=== PATIENT | male | born 1985 | race Caucasian/White ===

== ENCOUNTER 2017-11-21 06:27 | Emergency (ER) | payer OTHER ==
[2017-11-21 06:34] VITALS: BP 130/82; PULSE 61; TEMP 98.2; BMI 25.7
--- NOTE | 2017-11-21 07:14 | PDOC ---
History of Present Illness - General Chief Complaint: Pain, Acute Stated Complaint: BACK PAIN Time Seen by Provider: 11/21/17 07:13 - History of Present Illness Initial Comments: 11/21/17 07:13 Mr. Rice is a 32 yo male w/ pmh of IBS who presents c/o a 1 day history of right sided back pain that radiates to his abdomen. He reports the pain was mild last night and he believed that he was constipated but decided to call the ambulance this morning when he experienced 8-9/10 pain after urinating. He has never had pain like this before and describes it as sharp and coming and going. He has difficulty getting comfortable. The patient denies chest pain, shortness of breath, headache and dizziness. Denies fever, chills, nausea, vomit, diarrhea and constipation. Denies dysuria, frequency, urgency and hematuria. Allergies: NKDA Past History - Past Medical History Allergies/Adverse Reactions: Allergies Allergy/AdvReac Type Severity Reaction Status Date / Time No Known Drug Allergies Allergy Verified 11/21/17 06:34 Home Medications: Ambulatory Orders Omeprazole 20 mg PO DAILY 11/21/17 Oxycodone HCl/Acetaminophen [Percocet 5-325 mg Tablet] 1 tab PO TID PRN #7 tab MDD 3 tabs 11/21/17 Anemia: No Asthma: No Cancer: No Cardiac Disorders: No CVA: No COPD: No CHF: No Dementia: No Diabetes: No GI Disorders: Yes (IRRITABLE BOWEL SYNDROME;CONSTIPATION,ABDOMINAL BLOATING) Disorders: No HTN: No Hypercholesterolemia: No Liver Disease: No Seizures: No Thyroid Disease: No - Surgical History Abdominal Surgery: No Appendectomy: No Cardiac Surgery: No Cholecystectomy: No Lung Surgery: No Neurologic Surgery: No Orthopedic Surgery: No - Suicide/Smoking/Psychosocial Hx Smoking History: Never smoked Have you smoked in the past 12 months: No Information on smoking cessation initiated: No Hx Alcohol Use: No Drug/Substance Use Hx: No Substance Use Type: None Hx Substance Use Treatment: No Review of Systems - Review of Systems Comments:: 11/21/17 07:14 GENERAL/CONSTITUTIONAL: No fever or chills. No weakness. HEAD, EYES, EARS, NOSE AND THROAT: No change in vision. No ear pain or discharge. No sore throat. CARDIOVASCULAR: No chest pain or shortness of breath RESPIRATORY: No cough, wheezing, or hemoptysis. GASTROINTESTINAL: No nausea, vomiting, diarrhea or constipation. GENITOURINARY: No dysuria, frequency, or change in urination. MUSCULOSKELETAL: +Radiating back pain as described. SKIN: No rash NEUROLOGIC: No headache, vertigo, loss of consciousness, or change in strength/ sensation. ENDOCRINE: No increased thirst. No abnormal weight change HEMATOLOGIC/LYMPHATIC: No anemia, easy bleeding, or history of blood clots. ALLERGIC/IMMUNOLOGIC: No hives or skin allergy. *Physical Exam - Vital Signs Last Vital Signs Temp Pulse Resp BP Pulse Ox 98.2 F 61 20 130/82 100 11/21/17 06:30 11/21/17 06:30 11/21/17 06:30 11/21/17 06:30 11/21/17 06:30 - Physical Exam Comments: 11/21/17 07:14 GENERAL: Awake, alert, and fully oriented, in no acute distress HEAD: No signs of trauma, normocephalic, atraumatic EYES: PERRLA, EOMI, sclera anicteric, conjunctiva clear ENT: Auricles normal inspection, hearing grossly normal, nares patent, oropharynx clear without exudates. Moist mucosa NECK: Normal ROM, supple, no lymphadenopathy, JVD, or masses LUNGS: No distress, speaks full sentences, clear to auscultation bilaterally HEART: Regular rate and rhythm, normal S1 and S2, no murmurs, rubs or gallops, peripheral pulses normal and equal bilaterally. ABDOMEN: +Patient reports pressure but no pain to palpation throughout. Soft, nontender, normoactive bowel sounds. No guarding, no rebound. No masses EXTREMITIES: Normal inspection, Normal range of motion, no edema. No clubbing or cyanosis. NEUROLOGICAL: Cranial nerves II through XII grossly intact. Normal speech, normal gait, no focal sensorimotor deficits SKIN: Warm, Dry, normal turgor, no rashes or lesions noted. ED Treatment Course - LABORATORY CBC & Chemistry Diagram: 11/21/17 07:53 11/21/17 07:53 Medical Decision Making - Medical Decision Making 11/21/17 09:49 Mr. Rice is a 32 yo male w/ pmh as described who presents w/ symptoms concerning for kidney stone. Corresponding labs/CT ordered for evaluation with toradol given for pain control. Patient reported relief of pain with this treatment. CT revealed 5mm right UVJ calculus with mild hydronephrosis. Stone has been moving well within 4 hours of ER visit, concern for obstruction low at this time. Discharging w/ pain control and instructions to f/u as needed for further evaluation or uncontrolled pain. Patient verbalized understanding and agreement and will comply. *DC/Admit/Observation/Transfer Diagnosis at time of Disposition: Kidney stone - Discharge Dispostion Disposition: HOME Condition at time of disposition: Fair - Prescriptions Prescriptions: Oxycodone HCl/Acetaminophen [Percocet 5-325 mg Tablet] 1 tab PO TID PRN #7 tab MDD 3 tabs PRN Reason: Severe Pain - Referrals Referrals: Vidya Estrella MD [Primary Care Provider] - Blayne Ordaz MD [Staff Physician] - - Patient Instructions Printed Discharge Instructions: DI for Kidney Stones Additional Instructions: Take over the counter medications as needed for pain control. A prescription has been called to your pharmacy for breakthrough pain. Take as proscribed. Return to ER if any difficulty urinating, pain uncontrollable with proscribed medications, or other concerning symptoms. Urology information has been provided as well for further evaluation as needed. - Post Discharge Activity Forms/Work/School Notes: Back to School
[2017-11-21] MEDS ORDERED: KETOROLAC TROMETHAMINE 30 MG/1 ML VIAL IVPUSH ONE (07:21)
[2017-11-21] MEDS ORDERED: SODIUM CHLORIDE 1,000 ML IV STA (07:21)
[2017-11-21] MEDS ORDERED: KETOROLAC TROMETHAMINE 30 MG/1 ML VIAL ONE (07:43)
[2017-11-21 08:03] LABS: BASO % 0.3 % (0-2.0); EOS % 0.2 % (0-4.5); HEMATOCRIT 48.2 % (35.4-49); HEMOGLOBIN 17.2 GM/dL (11.7-16.9); LYMPH % 10.4 % (8-40); MCH 33.1 pg (25.7-33.7); MCHC 35.7 g/dl (32.0-35.9); MEAN CELL VOLUME 92.6 fl (80-96); MEAN PLT VOLUME 9.2 fl (7.5-11.1); MONO % 3.8 % (3.8-10.2); NEUT % 85.3 % (42.8-82.8); PLATELET COUNT 190 K/MM3 (134-434); RDW 13.1 % (11.9-15.9); WHITE BLOOD COUNT 10.9 K/mm3 (4.0-10.0)
[2017-11-21 08:24] LABS: URINE APPEARANCE CLOUDY; URINE BILIRUBIN NEGATIVE (<2.0 mg/dL); URINE COLOR AMBER; URINE GLUCOSE (UA) NEGATIVE (NEGATIVE); URINE KETONE NEGATIVE (NEGATIVE); URINE LEUK ESTERASE NEGATIVE (NEGATIVE); URINE NITRITE NEGATIVE (NEGATIVE); URINE PROTEIN 2+ (NEGATIVE)
[2017-11-21 08:27] LABS: URINE MUCUS MANY
[2017-11-21 08:32] LABS: ALBUMIN 4.3 g/dl (3.4-5.0); ALK PHOS 44 U/L (45-117); ANION GAP 5 (8-16); BILIRUBIN,TOTAL 1.1 mg/dL (0.2-1.0); BLOOD UREA NITROGEN 14 mg/dL (7-18); CALCIUM 8.8 mg/dL (8.5-10.1); CHLORIDE 105 mmol/L (98-107); CO2 29 mmol/L (21-32); CREATININE 1.1 mg/dL (0.7-1.3); GLUCOSE,RANDOM 118 mg/dL (74-106); POTASSIUM 4.1 mmol/L (3.5-5.1); SGOT/AST 17 U/L (15-37); SGPT/ALT 22 U/L (12-78); SODIUM 139 mmol/L (136-145); TOT PROT 7.3 g/dl (6.4-8.2)
--- NOTE | 2017-11-21 08:55 | PDOC ---
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 Since then, pain has been worse and escalating, had 1 episode of nonbloody nonbilious vomiting in the ED secondary to the pain. No fevers or chills, no history of renal stones, no history of biliary colic, no surgical history. - Physicial Exam PE: 11/21/17 08:54 Vital signs normal Uncomfortable appearing Cardiac pulmonary exam is normal Abdomen is soft/nontender, positive right CVA tenderness Neurologically intact, no rash - Medical Decision Making 11/21/17 08:55 My resident note Healthy 32-year-old male with acute onset of right flank pain and urinary symptoms, right CVA tenderness. Presentation is most consistent with likely renal colic, rule out superimposed infection. Low suspicion for GI etiology. Labs, urinalysis notable for positive blood in urine Pain controlled after Toradol CT of the abdomen and pelvis given first presentation Reassess
== END 2017-11-21 10:13 | disposition home or self-care (01) ==
LOC: JER 06:27
PROC: 3E0333Z Introduction of Anti-inflammatory into Peripheral Vein, Percutaneous Approach (ICD-10-PCS; principal; 2017-11-21)
DX: N13.2 Hydronephrosis with renal and ureteral calculous obstruction (principal); Z87.19 Personal history of other diseases of the digestive system
CPT/HCPCS: 36415; 74176; 80053; 81003; 81015; 83690; 85025; 87086; 96374; 99283-25; J7030

== ENCOUNTER 2020-05-05 04:49 | Day surgery (SDC) | payer OTHER ==
--- OUTSIDE RECORDS SUMMARY | 2020-04-25 16:05 | XMS ---
:1985 Author Organization [facility] Care Team Providers Name Role Phone Sarah Gama MD Unavailable Unavailable Barbara Mcgee Unavailable Unavailable Everardo, Barbara Unavailable Unavailable Kajal Mcgeet Unavailable Unavailable PORTER ARMENTA Unavailable Unavailable Other, Doctor Unavailable Unavailable Re-disclosure Warning The records that you are about to access may contain information from federally- assisted alcohol or drug abuse programs. If such information is present, then the following federally mandated warning applies: This information has been disclosed to you from records protected by federal confidentiality rules (42 CFR part 2). The federal rules prohibit you from making any further disclosure of this information unless further disclosure is expressly permitted by the written consent of the person to whom it pertains or as otherwise permitted by 42 CFR part 2. A general authorization for the release of medical or other information is NOT sufficient for this purpose. The Federal rules restrict any use of the information to criminally investigate or prosecute any alcohol or drug abuse patient.The records that you are about to access may contain highly sensitive health information, the redisclosure of which is protected by Article 27-F of the [facility] Public Health law. If you continue you may haveaccess to information: Regarding HIV / AIDS; Provided by facilities licensed or operated by the [facility] Office of Mental Health; or Provided by the [facility] Office for People With Developmental Disabilities. If such information is present, then the following [facility] mandated warning applies: This information has been disclosed to you from confidential records which are protected by state law. State law prohibits you from making any further disclosure of this information without the specific written consent of the person to whom it pertains, or as otherwise permitted by law. Any unauthorized further disclosure in violation of state law may result in a fine or group home sentence or both. A general authorization for the release of medical or other information is NOT sufficient authorization for further disclosure. Allergies and Adverse Reactions Type Description Substance Reaction Status Data Source(s ) Drug allergy No Known Allergies No Known Allergies [facility] Encounters Encounter Providers Location Date Indications Data Source(s ) Emergency Attender: Barbara ICU-[facility]ERG 03/22/2020 ABD PAIN [email or web address] - [place] ZielinskiAttender: 08:12:00 PM [facility] Doctor Other EDT - 03/22/2020 10:54:00 PM EDT ABD PAIN Patient discharged. Emergency Attender: Sarah 01/19/2020 05:03:00 BACK PAIN [facility] Lanette PHILLIPS PM EDT - 01/19/2020 [facility] 06:36:00 PM EDT BACK PAIN [facility] Patient discharged. Outpatient Attender: PORTER Brennan 10/24/2019 10:34:00 A M [facility] PORTER LAdmitter: PORTER URBANT Ce nt NOVA BUENROSTRO LReferrer: PORETR Dueñas Insurance Providers Payer name Policy type / Policy ID Covered Covered democrat's Policy Plan Coverage type democrat ID relationship to [employer] Information matos [employer] [id number] PT [id number] [place] [address] [employer].MOTORS [id number] 1 [id number] 01 [employer] [id number] PT [id number] COMPENSATION O X F O R D O [id number] 001 O [employer] [facility] O [id number] 01 [id number] Problems, Conditions, and Diagnoses Code Display Name Description Problem Type Effective Data Sour ce(s) Dates N23 Unspecified renal Renal colic Diagnosis 03/22/2020 S - New colic 08:12:[address] [facility] ABD PAIN ABD PAIN Diagnosis 03/22/2020 S - New 08:12:[address] [facility] Z87.442 Personal history Z87.442 Diagnosis 01/19/[address] [place] [facility] [place] urinary calculi 06:16:00 PM [facility] EDT M54.6 Pain in thoracic M54.6 Diagnosis 01/19/[address] [facility] spine 06:16:00 PM Hospital EDT Z20.828 Contact with and CONTACT W AND Diagnosis 10/24/2019 [place] (suspected) EXPOSURE TO OTH 10:34:00 AM [facility] exposure to other VIRAL COMMUNICABLE EDT viral communicable DISEASES diseases Surgeries/Procedures Procedure Description Date Indications Data Source(s) Diagnostic radiography of 01/19/2020 [facility] [place] lumbar spine, combined 12:00:00 AM EDT Ho spital anteroposterior and lateral (procedure) Radiography of thoracic 01/19/2020 [facility] [place] spine (procedure) 12:00:00 AM EDT Hospita l Results ID Date Data Source [id number] 03/22/2020 11:55:36 PM EDT [facility] Name Value Range Interpretation Description Data Sup porting Code Source(s) Document(s ) Appearance of CLEAR Normal (applies Urine [facility] Urine to non-numeric Appearance Health results) System Color Yellow Normal (applies Color [facility] to non-numeric Health results) System BilirubinUrine NEG Normal (applies Bilirubin [facility] to non-numeric Urine [facility] results) System Protein NEG Normal (applies Protein [facility] [Mass/volume] in to non-numeric Health Serum or Plasma results) System Glucose,UA NEG Normal (applies Glucose, UA [facility] to non-numeric Health results) System Specific gravity 1.004 Normal (applies Urine Specific [facility] of Urine to non-numeric [facility] results) System pH.. 6.0 Normal (applies pH.. [facility] {pH_units} to non-numeric Health results) System Nitrate+Nitrite Negative Normal (applies Nitrite [facility] [Mass/volume] in to non-numeric Health Unspecified results) System specimen Ketones NEG Normal (applies Ketones UA [facility] [Mass/volume] in to non-numeric Health Urine results) System Leukocyte NEG Normal (applies Leukocyte [facility] esterase to non-numeric Esterase Health [Units/volume] results) Concentration System in Urine Leukocytes < 1 /HPF Normal (applies White Blood [facility] [#/volume] in to non-numeric Cells Health Unspecified results) System specimen by Automated count Urobilinogen < 2.0 Normal (applies Urobilinogen [facility] [Mass/volume] in to non-numeric UA [facility] Urine results) System Reference Range: Negative or <=2.0 UrineBlood SM(1+) Abnormal (applies Urine Blood [facility] to non-numeric System results) Epithelial cells < 1 /HPF Normal (applies to Epithelial Cells [facility] [Presence] in non-numeric System Unspecified specimen results) by Wet preparation RedBloodCells 1 {/HPF} Normal (applies to Red Blood Cells [facility] non-numeric System results) ID Date Data Source [id number] 03/22/2020 11:55:36 PM EDT [facility] Name Value Range Interpretation Description Data Sup porting Code Source(s) Document(s ) Hematocrit 43.6 % Normal (applies Hematocrit [facility] [Volume to non-numeric Health Fraction] of results) System Blood Leukocytes 6.9 Normal (applies WBC Count [facility] [#/volume] in {10^3_uL to non-numeric Health Unspecified } results) System specimen by Automated count Hemoglobin 16.0 Normal (applies Hemoglobin [facility] [Mass/volume] in {gm/dL} to non-numeric Health Blood results) System Erythrocytes 4.99 Normal (applies RBC Count [facility] [#/volume] in {10^6_uL to non-numeric Health Blood by } results) System Automated count Erythrocyte mean 32.1 pg Above high MCH [facility] corpuscular normal Health hemoglobin System [Entitic mass] by Automated count Erythrocyte mean 87.4 fl Normal (applies MCV [facility] corpuscular to non-numeric Health volume [Entitic results) System volume] by Automated count Erythrocyte mean 36.7 Above high MCHC [facility] corpuscular {gm/dL} normal Health hemoglobin System concentration [Mass/volume] by Automated count Erythrocyte 12.2 % Normal (applies RDW-CV [facility] distribution to non-numeric Health width [Entitic results) System volume] by Automated count Platelet mean 10.5 fl Normal (applies MPV [facility] volume [Entitic to non-numeric Health volume] in Blood results) System by Automated count NRBC# 0.00 Normal (applies NRBC # [facility] {10^3_uL to non-numeric Health } results) System Platelets 202 Normal (applies Platelet Count [facility] [#/volume] in {10^3_uL to non-numeric Health Plasma by } results) System Automated count Nucleated 0.0 Normal (applies NRBC % [facility] erythrocytes {/100_WB to non-numeric Health [#/volume] in C} results) System Body fluid Lymphocytes 25.1 % Normal (applies Lymphocyte % [facility] [#/volume] in to non-numeric Health Blood by results) System Automated count Neutrophils 4.6 Normal (applies Neutrophil # [facility] [#/volume] in {10^3_uL to non-numeric Health Body fluid } results) System Neutrophils/100 67.1 % Normal (applies Neutrophil % [facility] leukocytes in to non-numeric Health Blood by results) System Automated count Lymphocyte 1.7 Normal (applies Lymphocyte # [facility] percent {10^3_uL to non-numeric Health differential } results) System count (procedure) Eosinophils/100 0.3 % Normal (applies Eosinophil % [facility] leukocytes in to non-numeric Health Unspecified results) System specimen Monocytes/100 6.8 % Normal (applies Monocyte % [facility] leukocytes in to non-numeric Health Blood results) System Monocytes 0.5 Normal (applies Monocyte # [facility] [#/volume] in {10^3_uL to non-numeric Health Blood by Manual } results) System count Eosinophils 0.02 Normal (applies Eosinophil # [facility] [#/volume] in {10^3_uL to non-numeric Health Blood } results) System Basophils/100 0.7 % Normal (applies Basophil % [facility] leukocytes in to non-numeric Health Unspecified results) System specimen by Manual count Basophils 0.05 Normal (applies Basophil # [facility] [#/volume] in {10^3_uL to non-numeric Health Blood by } results) System Automated count ImmatureGranuloc 0.0 % Normal (applies Immature [facility] ytes% to non-numeric Granulocytes % Health results) System ImmatureGranuloc 0.00 Normal (applies Immature [facility] ytes# {10^3_uL to non-numeric Granulocytes # Health } results) System ID Date Data Source [id number] 03/22/2020 11:55:36 PM EDT [facility] Name Value Range Interpretation Description Data Source(s ) Supporting Code Document(s ) Lipase 19 U/L Normal (applies to Lipase, Serum [facility] [Enzymatic non-numeric Health System activity/vo results) lume] in Serum or Plasma ID Date Data Source [id number] 03/22/2020 11:55:36 PM EDT [facility] Name Value Range Interpretation Description Data Sup porting Code Source(s) Document(s ) Sodium 140 Normal (applies Sodium, Serum [facility] [Moles/volume] in mmol/L to non-numeric Health Serum or Plasma results) System Chloride 105 Normal (applies Chloride, [facility] [Moles/volume] in mmol/L to non-numeric Serum Health Serum or Plasma results) System Potassium 3.7 Normal (applies Potassium, [facility] [Mass/volume] in mmol/L to non-numeric Serum Health Serum or Plasma results) System Carbon dioxide, 24.8 Normal (applies CO2, Serum [facility] total mmol/L to non-numeric Health [Moles/volume] in results) System Serum or Plasma Glucose 96 Normal (applies Glucose, [facility] [Mass/volume] in mg/dL to non-numeric Serum Health Serum or Plasma results) System Urea nitrogen 13 Normal (applies Blood Urea [facility] [Mass/volume] in mg/dl to non-numeric Nitrogen, Health Serum or Plasma results) Serum System TotalProtein 6.8 Normal (applies Total Protein [facility] mg/dl to non-numeric Health results) System Alkaline 31 Below low normal Alkaline [facility] phosphatase {IU/L} Phosphatase, Health isoenzymes Serum System [Enzymatic activity/volume] in Serum or Plasma by Heat stability Bilirubin.total 1.4 Above high Bilirubin, [facility] [Mass/volume] in mg/dl normal Serum Total Health Serum or Plasma System Creatinine 0.91 Normal (applies Creatinine, [facility] [Mass/volume] in mg/dl to non-numeric Serum Health Serum or Plasma results) System DirectBilirubin 0.2 Normal (applies Direct [facility] mg/dl to non-numeric Bilirubin Health results) System Aspartate 45 Above high Aspartate [facility] aminotransferase {IU/L} normal Transaminase, Health [Enzymatic Serum System activity/volume] in Serum or Plasma by With P-5'-P Albumin 4.4 Normal (applies Albumin, [facility] [Mass/volume] in {gm/dl} to non-numeric Serum Health Serum or Plasma results) System Calcium 9.3 Normal (applies Calcium, [facility] [Mass/volume] in mg/dl to non-numeric Total Serum Health Serum or Plasma results) System I.Phosphorus 2.7 Normal (applies I. Phosphorus [facility] mg/dl to non-numeric Health results) System Alanine 125 Above high Alanine [facility] aminotransferase {IU/L} normal Aminotransfer Health [Enzymatic ase, Serum System activity/volume] in Serum or Plasma A/GRatio 1.83 Normal (applies A/G Ratio [facility] to non-numeric Health results) System Glomerular > 90 Normal (applies GFR [facility] filtration to non-numeric Health rate/1.73 sq results) System M.predicted [Volume Rate/Area] in Serum or Plasma by Creatinine-based formula (CKD-EPI) eGFR will provide clinicians with a more accurate indicator of renal function then the serum creatinine. The eGFR is automa tically calculated from an empiric formula (endorsed by the National Kidney Found[employer] ion) which incorporates age, sex, and race.Clinicians may notice surprisingly low GFR's with serum creatinine valueswithin normal range- particularly in elderly wo men (with low muscle mass).In the hospital setting, the eGFR should add an element of safety in drug dosing, in assessing the risk of IV contrast administration, and in assessing vascular risk.The NKF staging system is as follows:Normal: eGFR >90 with no kidney markersStage 1: eGFR >90 with kidney markers*Stage 2: eGFR 60- 89Stage 3: eGFR 30-59Stage 4: eGFR 15-29Stage 5: eGFR <15 (usually requir ing dialysis)*Markers include: Proteinuria, Hematuria, abnormal imaging-studies, or other blood or urine test abnormalities Anion gap in 10.20 mmol/L Normal (applies to Anion Gap [facility] Serum or Plasma non-numeric results) Sys tem Urate 6.8 mg/dl Normal (applies to Uric Acid, [facility] [Mass/volume] non-numeric results) Serum Syste m in Serum or Plasma ID Date Data Source [id number] 10/24/2019 12:00:00 AM EDT [facility] Name Value Range Interpretation Code Description Data Nathalie rce(s) Supporting Document(s ) 2019-nCoV [place] RNA XXX STEVE+probe- Imp This lab was ordered by [facility] and reported by [employer]. Procedure Social History Code Duration Value Status Description Data Source(s ) Smoking 01/19/2020 Never smoked completed Never smoked [place] [facility] [facility] 05:[facility]:00 PM EDT tobacco tobacco (finding) Ho spital (finding) Vital Signs ID Date Data Source UNK Name Value Range Interpretation Code Description Data Source(s) Diastolic blood 80 mm[Hg] 0 - 999 Normal (applies to 80 mm[Hg] [facility] pressure non-numeric Health System results) Systolic blood 120 mm[Hg] 0 - 999 Normal (applies to 120 mm[Hg] [facility] pressure non-numeric Health System results) Oxygen saturation 99 % 0 - 999 Normal (applies to 99 % [facility] by Pulse oximetry results) Respiratory rate 17 0 - 999 Normal (applies to 17 [facility] non-numeric Health System results) Heart rate 100 0 - 999 Above high normal [address] [facility] System Body surface area 1.7 m2 1.7 m2 [facility] Derived from [employer] m formula Body mass index 23.4 kg/m2 23.4 kg/m2 [facility] [Ratio] Health Syst Body weight 68.03 kg 68.03 kg [facility] System Body height 170.18 cm 170.18 cm [facility] Body temperature 98.3 0 - 200 Normal (applies to 98.3 [degF] [facility] [degF] non-numeric Health System results) Body temperature 36.8 Becka 0 - 99.9 Normal (applies to 36.8 Becka [facility] non-numeric Health System results) Diastolic blood 84 mm[Hg] 84 mm[Hg] [place] [facility] Systolic blood 126 mm[Hg] 126 mm[Hg] [facility] Respiratory rate 18 /min 18 /min [facility] Heart rate 88 /min 88 /min [facility] Body temperature 36.56823 36.57337 Becka [facility] Body temperature 98.3 98.3 [degF] [facility] [degF] [facility] Body mass index 29.0 kg/m2 29.0 kg/m2 [facility] [place] [facility] (BMI) [Ratio] Hospital Body weight 175.38 175.38 [lb_av] [facility] [place] [lb_av] [facility]
[2020-05-02 15:25] VITALS: BMI 29.1
--- OUTSIDE RECORDS SUMMARY | 2020-05-05 04:53 | XMS ---
:1985 Author Organization [facility] Care Team Providers Name Role Phone Sarah Gama MD Unavailable Unavailable Barbara Mcgee Unavailable Unavailable Barbara Mcgee Unavailable Unavailable Barbara Mcgee Unavailable Unavailable PORTER ARMENTA Unavailable Unavailable Other, [...] is protected by Article 27-F of the [facility] Public Health law. If you continue you may haveaccess to information: Regarding HIV / AIDS; Provided by facilities licensed or operated by the [facility] Office of Mental Health; or Provided by the [facility] Office for People With Developmental Disabilities. If such information is present, then the following [facility] mandated warning applies: This information has [...] law may result in a fine or prison sentence or both. A general authorization for the release of medical or other information is NOT sufficient authorization for further disclosure. Allergies and Adverse Reactions Type Description Substance Reaction Status Data Source(s ) Drug allergy No Known Allergies No Known Allergies [facility] Encounters Encounter Providers Location Date Indications Data Source(s ) Emergency Attender: Barbara ICU-[facility] 03/22/2020 ABD PAIN [facility] - Daniel Tillmander: 08:12:00 PM [facility] Doctor Other EDT - 03/22/2020 10:54:00 PM EDT ABD PAIN Patient discharged. Emergency Attender: Sarah 01/19/2020 05:03:00 BACK PAIN Michael Gama MD PM EDT - 01/19/2020 [facility] 06:36:00 PM EDT BACK PAIN AM.[facility] Patient discharged. Outpatient Attender: PORTER Brennan 10/24/2019 10:34:00 A M [facility] PORTER LAdmitter: PORTER EDT Ce joce BUENROSTRO LReferrer: PORTER Dueñas Insurance Providers Payer name Policy type / Policy ID Covered Covered alliance party's Policy Plan Coverage type alliance party ID relationship to [employer] Information matos [facility] [id number] SP [id number] [employer]ANS [employer] [id number] PT [id number] 1986 [facility] NCTech [id number] 1 [id number] 01 Healthcare WORKERS [id number] PT [id number] COMPENSATION O X F O R D O [id number] 01 [id number] O [employer] [facility] O [id number] 01 [id number] Problems, Conditions, and Diagnoses Code Display Name Description Problem Type Effective Data Sour ce(s) Dates N23 Unspecified renal Renal colic Diagnosis 03/22/2020 [facility] - New colic 08:12:00 PM [facility] ABD PAIN ABD PAIN Diagnosis 03/22/2020 [facility] - New 08:12:00 PM [facility] Z87.442 Personal history Z87.442 Diagnosis 01/19/[address] [facility] urinary calculi 06:16:00 PM [facility] EDT M54.6 Pain in thoracic M54.6 Diagnosis 01/19/[address] [facility] spine 06:16:00 PM Hospital EDT Z20.828 Contact with and CONTACT W AND Diagnosis 10/24/2019 [facility] (suspected) EXPOSURE TO OTH 10:34:00 AM Medical Center exposure to other VIRAL COMMUNICABLE EDT viral communicable DISEASES diseases Surgeries/Procedures Procedure Description Date Indications Data Source(s) Diagnostic radiography of 01/19/2020 [facility] [place] lumbar spine, combined 12:00:00 AM EDT Ho spital anteroposterior and lateral (procedure) Radiography of thoracic 01/19/2020 [facility] [place] spine (procedure) 12:00:00 AM EDT Hospita l Results ID Date Data Source [id number] 05/01/2020 08:50:00 AM EDT [facility] Name Value Range Interpretation Description Data Sup porting Code Source(s) Document(s ) SARS [facility] coronavirus 2 RNA This lab was ordered by [facility] and reported by [facility]. ID Date Data Source [id number] 03/22/2020 11:55:36 PM EDT [facility] [...] Specific [facility] Urine to non-numeric [facility] results) System pH.. 6.0 Normal (applies [...] non-numeric System results) ID Date Data Source [id number] 03/22/2020 11:55:36 PM EDT [facility] [...] } results) System ID Date Data Source [id number] 03/22/2020 11:55:36 PM EDT [facility] Name Value Range Interpretation Description Data Source(s ) Supporting Code Document(s ) Lipase 19 U/L Normal (applies to Lipase, Serum [facility] [Enzymatic non-numeric Health System activity/vo results) lume] in Serum or Plasma ID Date Data Source [id number] 03/22/2020 11:55:36 PM EDT [facility] [...] 10.20 mmol/L Normal (applies to [facility] Serum or Plasma non-numeric results) Sys tem Urate 6.8 mg/dl Normal (applies to Uric Acid, [facility] [Mass/volume] non-numeric results) Serum Syste m in Serum or Plasma ID Date Data Source [id number] 10/24/2019 12:00:00 AM EDT [facility] Name Value Range Interpretation Code Description Data Nathalie rce(s) Supporting Document(s ) 2019-nCoV [facility] RNA XXX STEVE+probe- Imp This lab was ordered by [facility] and reported by [facility]. Procedure Social History Code Duration Value Status [...] - 999 Normal (applies to 99 % [facility] in Arterial blood non-numeric Health System by Pulse oximetry results) Respiratory rate 17 0 - 999 Normal (applies to 17 [facility] non-numeric Health System results) Heart rate 100 0 - 999 Above high normal 100 [facility] Body surface area 1.7 m2 1.7 m2 [facility] Derived from Health Syste m formula Body mass index 23.4 kg/m2 23.4 kg/m2 [facility] e (BMI) [Ratio] Health Syst em Body weight 68.03 kg 68.03 kg [facility] [employer] [facility] Body height 170.18 cm 170.18 cm [facility] [employer] [facility] Body temperature 98.3 0 - 200 Normal (applies to 98.3 [degF] [facility] [degF] non-numeric Health System results) Body temperature 36.8 Becka 0 - 99.9 Normal (applies to 36.8 Becka [facility] non-numeric Health System results) Diastolic blood 84 mm[Hg] 84 mm[Hg] [place] [facility] Systolic blood 126 mm[Hg] 126 mm[Hg] [facility] ns pressure Hospital Respiratory rate 18 /min 18 /min [facility] Heart rate 88 /min 88 /min [facility] Body temperature 36.72772 36.99217 Becka [facility] Body temperature 98.3 98.3 [degF] [facility] [degF] Hospital Body mass index 29.0 kg/m2 29.0 kg/m2 [facility] ins (BMI) [Ratio] Hospital Body weight 175.38 175.38 [lb_av] [facility] ins [lb_av] Hospital
[2020-05-05] MEDS ORDERED: MIDAZOLAM HCL 2 MG/2 ML SINGLE DOSE VIAL ONE (19:29)
[2020-05-05] MEDS ORDERED: PROPOFOL 20 ML ONE ×2 (19:33)
--- NOTE | 2020-05-05 19:36 | OP ---
Operative Note - Note: Operative Date: 05/05/20 Pre-Operative Diagnosis: Left renal stone Operation: Left ESWL Findings: 6 mm lower pole Left renal stone Post-Operative Diagnosis: Same as Pre-op Surgeon: Blayne Ordaz Anesthesia: Regional Estimated Blood Loss (mls): 0 Operative Report Dictated: Yes
[2020-05-05 20:43] VITALS: TEMP 97.4
[2020-05-05 20:46] VITALS: BP 115/79; PULSE 76
--- NOTE | 2020-05-06 00:26 | OP ---
DATE OF OPERATION: 05/05/2020 PREOPERATIVE DIAGNOSIS: Left renal stone. POSTOPERATIVE DIAGNOSIS: Left renal stone. PROCEDURE: Left extracorporeal shockwave lithotripsy. ATTENDING: Jyoti Ordaz MD. ANESTHESIA: Fractional. DESCRIPTION OF PROCEDURE: Patient was brought in the operating room, placed in a supine position on the operating room table. Ultrasonography and fluoroscopy were performed. A 6-mm left lower pole stone was identified. At this point anesthesia and preoperative antibiotics were administered. Shockwave lithotripsy was then started. 2500 impulses at 17 joules of power were administered to the stone under direct fluoroscopic and ultrasonographic visualization. Excellent fragmentation noted. No complications were noted. The patient tolerated the procedure very well. JYOTI RAMIREZ M.D. [id number]
== END 2020-05-05 20:50 | disposition home or self-care (01) ==
LOC: JASU-SURG 04:49
PROVIDERS: ATTEND Urology
PROC: 0TF4XZZ Fragmentation in Left Kidney Pelvis, External Approach (ICD-10-PCS; principal; 2020-05-05 18:30)
DX: N20.0 Calculus of kidney (principal)

== ENCOUNTER 2020-05-19 05:22 | Day surgery (SDC) | payer OTHER ==
[2020-05-16 14:12] VITALS: BMI 29.1
[2020-05-19] MEDS ORDERED: MIDAZOLAM HCL 2 MG/2 ML SINGLE DOSE VIAL ONE ×2 (16:50→17:02)
[2020-05-19] MEDS ORDERED: PROPOFOL 20 ML ONE (16:52)
[2020-05-19 17:36] VITALS: TEMP 97.7
[2020-05-19 18:10] VITALS: BP 121/76; PULSE 63
== END 2020-05-19 18:00 | disposition home or self-care (01) ==
LOC: JASU-SURG 05:22
PROVIDERS: ATTEND Urology
PROC: 0TF3XZZ Fragmentation in Right Kidney Pelvis, External Approach (ICD-10-PCS; principal; 2020-05-19 17:00)
DX: N20.0 Calculus of kidney (principal)